=== PATIENT | female | born 1990 | race Two or more races ===

== ENCOUNTER 2019-05-03 14:41 | Emergency (ER) | payer BC ==
[~2019-05-03] VITALS: Ht 157.5 cm; Wt 127.0 kg
[2019-05-03 15:15] VITALS: BP 137/90
== END 2019-05-03 17:54 | disposition home or self-care (01) ==
LOC: ER 14:41
DX: J11.1 Influenza due to unidentified influenza virus with other respiratory manifestations (principal); J40 Bronchitis, not specified as acute or chronic; R50.9 Fever, unspecified
CPT/HCPCS: 71045; 81025; 87804; 99284